=== PATIENT | female | born 1960 | race Caucasian/White ===

== ENCOUNTER 2017-01-13 14:10 | Emergency (ER) | payer SELFPAY ==
[2017-01-13 14:53] VITALS: BP 151/67
--- NOTE | 2017-01-13 15:04 | EDM.PDOC ---
ED HPI GENERAL MEDICAL PROBLEM - General Chief Complaint: Headache Stated Complaint: GENERAL ILLNESS Time Seen by Provider: 01/13/17 14:12 Source of Information: Reports: Patient, Family, RN, RN Notes Reviewed History Limitations: Reports: No Limitations - History of Present Illness INITIAL COMMENTS - FREE TEXT/NARRATIVE: Patient presents emergency room at [facility] complaining of a right-sided earache and sore throat that began last Saturday. The patient states that she was seen by her primary care provider on who diagnosed her with a viral infection and instructed her to take Sudafed. The patient states that her symptomatology has progressively gotten worse. The patient has tried over-the- counter medications without any relief of her symptoms. No close family members or contacts with similar symptoms. The patient states she is trying to stay well hydrated with good by mouth fluid intake. The patient also complains of fatigue. Onset Date: 01/08/17 Headache Pain Score (Numeric/FACES): 7 - Related Data Allergies Allergy/AdvReac Type Severity Reaction Status Date / Time No Known Allergies Allergy Verified 01/13/17 14:42 Home Meds: Home Meds Amoxicillin 875 mg PO BID #16 tab 01/13/17 [Rx] ED ROS ENT - Review of Systems Review Of Systems: See Below Constitutional: Reports: Fever, Fatigue, Decreased Appetite. Denies: Chills HEENT: Reports: Ear Pain, Throat Pain, Throat Swelling. Denies: Eye Discharge, Eye Pain, Rhinitis, Sinus Problem, Vision Change Respiratory: Reports: Cough. Denies: Shortness of Breath, Sputum Cardiovascular: Denies: Chest Pain, Palpitations Skin: Reports: No Symptoms Neurological: Reports: Dizziness, Headache ED EXAM, ENT - Physical Exam Exam: See Below Exam Limited By: No Limitations General Appearance: Alert, No Apparent Distress Eye Exam: Bilateral Eye: EOMI, Normal Inspection, PERRL Ears: Canal Swelling, TM Bulging, TM Fluid, Other (Left ear is normal) Nose: Normal Inspection Mouth/Throat: Pharyngeal Erythema, Throat Pain, Throat Swelling, Other ( Pharyngeal exudate on right side) Neck: Supple Respiratory/Chest: No Respiratory Distress, Lungs Clear, Normal Breath Sounds Cardiovascular: Regular Rate, Rhythm Neurological: Alert, Oriented Skin: Warm, Dry, Intact, Normal Color, No Rash Course - Vital Signs Last Recorded V/S: Last Vital Signs Temp 38.3 C H 01/13/17 14:10 Pulse 102 H 01/13/17 14:10 Resp 16 01/13/17 14:10 BP 151/67 H 01/13/17 14:10 Pulse Ox - Orders/Labs/Meds Orders: Active Orders 24 hr Category Date Time Status STREP A POC, FOR ED [POC] Stat Lab 01/13/17 14:57 Uncollected Departure - Departure Time of Disposition: 15:07 Disposition: Home, Self-Care 01 Condition: good Clinical Impression: Exudative pharyngitis Otitis media Qualifiers: Otitis media type: suppurative Laterality: right Chronicity: acute Recurrence: recurrent Spontaneous tympanic membrane rupture: without spontaneous rupture Qualified Code(s): H66.004 - Acute suppurative otitis media without spontaneous rupture of ear drum, recurrent, right ear Fever Qualifiers: Fever type: unspecified Qualified Code(s): R50.9 - Fever, unspecified Fatigue Qualifiers: Fatigue type: unspecified Qualified Code(s): R53.83 - Other fatigue - Discharge Information Prescriptions: Amoxicillin 875 mg PO BID #16 tab Instructions: Otitis Media, Adult, Pharyngitis, Fatigue Referrals: PCP,None [Primary Care Provider] - Forms: ED Department Discharge Additional Instructions: 1. Stay well hydrated and rest 2. Change out any buy a new toothbrush 3. Wash hands frequently 4. Take medications for the full coarse, even if you are feeling better 5. May alternate Tylenol/Advil as needed 6. See your Primary as symptoms warrant - Problem List Review Problem List Initiated/Reviewed/Updated: Yes - My Orders Last 24 Hours: My Active Orders 01/13/17 14:57 STREP A POC, FOR ED [POC] Stat - Assessment/Plan Last 24 Hours: My Active Orders 01/13/17 14:57 STREP A POC, FOR ED [POC] Stat
[2017-01-13] MEDS ORDERED: Take Home: Amoxicillin 875 MG Tab, 2 Tab Pack PO ONE (15:09)
[2017-01-13] MEDS ORDERED: Take Home: predniSONE 20 MG, 2 Tab Pack PO ONE (15:15)
== END 2017-01-13 15:20 | disposition home or self-care (01) ==
LOC: VM.ED 14:10
DX: H66.004 Acute suppurative otitis media without spontaneous rupture of ear drum, recurrent, right ear (principal); J02.9 Acute pharyngitis, unspecified; R53.83 Other fatigue
CPT/HCPCS: 87081; 87880; 99284; A9270; 99283-GF